=== PATIENT | female | born 1945 | race Caucasian/White ===

== ENCOUNTER 2024-02-04 10:59 | Outpatient (CLI) | payer MEDICARE, SELFPAY | END 2024-02-04 11:00 | disposition home or self-care (01) | LOC: KYNREF 11:01 | PROVIDERS: PCP Family Medicine; Visit Provider Nurse Practitioner Family | DX: N39.0 Urinary tract infection, site not specified (principal); B96.20 Unspecified Escherichia coli [E. coli] as the cause of diseases classified elsewhere | CPT/HCPCS: 81001; 87086; 87186 ==

== ENCOUNTER 2024-02-17 10:48 | Outpatient (CLI) | payer MEDICARE, SELFPAY ==
--- OUTSIDE RECORDS SUMMARY | 2024-02-20 18:49 | XMS_ITS | Clinical Summary ---
Author Organization [facility] er Address [address] [place] [address] Care Team Providers Care Classifying Machine Operator Name Role Phone Unavailable Primary Care Provider Unavailabl e Allergies No known active allergies Medications Medication Sig Dispensed Refills Start Date End Date Status celecoxib (CeleBREX) 200 MG capsule Take 1 capsule (200 mg total) by mouth 1 (one) time each day Take with food. Takes as needed Active estradiol (ESTRACE) 0.1 MG/GM vaginal cream Insert 2 g into the vagina 2 (two) times a week Insert once gram vaginally twice weekly at bedtime Active hydroxychloroquine (PLAQUENIL) 200 MG tablet Take 1 tablet (200 mg total) by mouth 2 (two) times a day Take 1 tablet by mouth twice daily with meals Active pilocarpine (SALAGEN) 5 MG tablet Take 1 tablet (5 mg total) by mouth 3 (three) times a day Take 1 tablet 3 times a day by oral route Active cycloSPORINE (RESTASIS) 0.05 % ophthalmic emulsion Administer 1 drop into both eyes 2 (two) times a day Instill 1 drop into each eye twice daily for the treatment of dry eyes Active carboxymethylcellulo se sod pf 1 % gel 2 drops 2 (two) times a day Active Polyethylene Glycol 400 (Blink Tears) 0.25 % gel Apply 1 drop to affected eye(s) 2 (two) times a day Active escitalopram (LEXAPRO) 10 MG tablet Take 1 tablet (10 mg total) by mouth 1 (one) time each day Active acetaminophen (TYLENOL 8 HOUR) 650 MG 8 hr tablet Take 1 tablet (650 mg total) by mouth every 8 (eight) hours if needed for mild pain Do not crush, chew, or split. Active Biotin 56325 MCG tablet Take 1 tablet by mouth daily Active Calcium Carb-Cholecalciferol (CALCIUM 500 + D PO) Take 1 tablet by mouth 2 (two) times a day Active Glucosamine-Chondroi tin 750-600 MG chewable tablet Chew 1 tablet 2 (two) times a day Active ascorbic acid (VITAMIN C) 500 MG tablet Take 1 tablet (500 mg total) by mouth 1 (one) time each day Active Cholecalciferol (Vitamin D3) 50 MCG (2000 UT) tablet Take 1 tablet by mouth 1 (one) time each day Active Immunizations Name Administration Dates Next Due Covid-19 Vaccine, Unspecifie d Formulation 03/08/2021,08/21/2020,07/26/2020 Flu Vaccine High Dose 65yrs and Older IM 04/13/2023 H1N1 All Forms 06/07/2009 Influenza, Split Virus, Triv alent, Preservative 03/30/2013,03/24/2012,03/12/2010,03/07,04/05/2008,04/08/2007,04/13/2006 ,04/13/2005 Influenza, Trivalent, PF 04/09/2016,03/24,04/13/2014,04/03 Pneumococcal Conjugate 13-Valent 08/27/2017,01/2017 Pneumococcal Polysaccharide 05/24/2015, 2 TD Preservative Free 05/07/2006 Tdap 04/10/2015 Zoster 05/14/2008 Zoster Recombinant 07/22/2022,05/25/2022 Social History Tobacco Use Types Packs/Day Years Used Date Smoking Tobacco: Never Assessed Passive Smoke Exposure: Past Smokeless Tobacco: Never Tobacco Cessation:Counseling Given: No Alcohol Use Standard Drinks/Week Comments Yes 1 (1 standard drink = 0.6 oz pur e alcohol) Sex and Gender Information Value Date Recorded Sex Assigned at Not on file Gender Identity Not on file Sexual Orientation Not on file Last Filed Vital Signs Vital Sign Reading Time Taken Comments Blood Pressure 136/82 10/21/2023 1:40 PM CDT Pulse 74 10/21/2023 1:40 PM CDT Temperature 36.6 ??C (97.9 ??F) 10/21/2023 1:40 PM CD T Respiratory Rate 16 10/21/2023 1:40 PM CDT Oxygen Saturation - - Inhaled Oxygen Concentration - - Weight 62.1 kg (136 lb 12.8 oz) 10/21/2023 1:40 PM CDT Height 157.5 cm (5' 2) 10/21/2023 1:40 PM CDT Body Mass Index 25.02 10/21/2023 1:40 PM CDT Plan of Treatment Upcoming Encounters Date Type Department Care Team (Late st Contact Info) Description 04/19/2024 10:40 AM SALES AND SERVICE TECHNICIAN Office Visit [facility] Rheumatology [address] [place] [address] Rosalinda Levin MD [address] [place] [address] Health Maintenance Due Date Last Done Comments Mammogram 1945 Fall Risk Performed 10/27/1963 Medicare Annual Wellness Visit (AWV) 10/27/1963 COVID-19 Vaccine ( season) 2024 04/13/2023, 03/08/2021, 08/21/2020, Additional history exists DTaP,Tdap,and Td Vaccines (2 - Td or Tdap) 04/10/2025 04/10/2015, 05/07/2006, 05/07/2006 Bone Density Scan 06/16/2027 06/16/2022, 06/07/2013 Pneumococcal Vaccine: 65+ Years Completed 08/27/2017, 06/01/2016, 05/24/2015, Additional history exists Colonoscopy Discontinued 02/03/2018 Colorectal Cancer Screening Discontinued Zoster Vaccines Completed 07/22/2022, 06/2022, 05/24/2014, Additional history exists Influenza Vaccine Completed 02/03/2024, , 03/16/2022, Additional history exists CT Colonography Discontinued FIT-DNA Discontinued HPV Vaccines Aged Out No longer eligi ble based on patient's age to complete this topic Sigmoidoscopy Discontinued iFOBT Discontinued
== END 2024-02-17 10:49 | disposition home or self-care (01) ==
LOC: NFLDREF 02-20 18:47
PROVIDERS: PCP Family Medicine; Referring Provider Family Medicine; Visit Provider Family Medicine
DX: N39.0 Urinary tract infection, site not specified (principal); B96.20 Unspecified Escherichia coli [E. coli] as the cause of diseases classified elsewhere
CPT/HCPCS: 87086; 87186

== ENCOUNTER 2024-02-21 13:50 | Outpatient (CLI) | payer MEDICARE, SELFPAY ==
--- OUTSIDE RECORDS SUMMARY | 2024-02-23 13:21 | XMS_ITS | Clinical Summary ---
Author Organization [facility] er Address [address] [place] [address] Care Team Providers Care Rehabilitation Aide/Scheduler Name Role Phone Unavailable Primary Care Provider [...] not crush, chew, or split. Active Biotin 88549 MCG tablet Take 1 tablet by mouth [...] st Contact Info) Description 04/19/2024 10:40 AM ELECTRICAL ENGINEER Office Visit [facility] Rheumatology [address] [place] [address] Rosalinda Levin MD [address] [place] [address] Health Maintenance Due Date Last [...]
== END 2024-02-21 13:51 | disposition home or self-care (01) ==
LOC: NFLDREF 02-23 13:19
PROVIDERS: PCP Family Medicine; Referring Provider Family Medicine; Visit Provider Family Medicine
DX: N39.0 Urinary tract infection, site not specified (principal); B96.20 Unspecified Escherichia coli [E. coli] as the cause of diseases classified elsewhere
CPT/HCPCS: 87086; 87186

== ENCOUNTER 2024-03-17 08:51 | Outpatient (CLI) | payer MEDICARE, SELFPAY ==
--- OUTSIDE RECORDS SUMMARY | 2024-03-17 14:49 | XMS_ITS | Clinical Summary ---
Author Organization [facility] er Address [address] [place] [address] Care Team Providers Care Marking Devices Assembler Name Role Phone Unavailable Primary Care Provider [...] not crush, chew, or split. Active Biotin 61137 MCG tablet Take 1 tablet by mouth [...] 10/21/2023 1:40 PM CDT Plan of Treatment Health Maintenance Due Date Last Done Comments [...]
== END 2024-03-17 08:52 | disposition home or self-care (01) ==
LOC: NFLDREF 14:48
PROVIDERS: PCP Family Medicine; Referring Provider Family Medicine; Visit Provider Family Medicine
DX: R39.9 Unspecified symptoms and signs involving the genitourinary system (principal); Z23 Encounter for immunization
CPT/HCPCS: 87086

== ENCOUNTER 2024-03-27 10:22 | Outpatient (CLI) | payer MEDICARE, SELFPAY ==
--- OUTSIDE RECORDS SUMMARY | 2024-03-27 10:26 | XMS_ITS | Clinical Summary ---
Author Organization [facility] er Address [address] [place] [address] Care Team Providers Care Communications Supervisor Name Role Phone Unavailable Primary Care Provider [...] not crush, chew, or split. Active Biotin 56916 MCG tablet Take 1 tablet by mouth [...] 10/27/1963 Medicare Annual Wellness Visit (AWV) 10/27/1963 DTaP,Tdap,and Td Vaccines (2 - Td or Tdap) 04/10/2025 04/10/2015, 05/07/2006, 05/07/2006 Bone Density Scan 06/16/2027 06/16/2022, 06/07/2013 Pneumococcal Vaccine: 65+ Years Completed 08/27/2017, 06/01/2016, 05/24/2015, Additional history exists Colonoscopy Discontinued 02/03/2018 Colorectal Cancer Screening Discontinued Zoster Vaccines Completed 07/22/2022, 06/2022, 05/24/2014, Additional history exists Influenza Vaccine Completed 02/03/2024, , 03/16/2022, Additional history exists COVID-19 Vaccine Completed 03/17/2024, , 03/08/2021, Additional history exists CT Colonography Discontinued FIT-DNA Discontinued HPV Vaccines Aged Out No longer eligi ble based on patient's age to complete this topic Sigmoidoscopy Discontinued iFOBT Discontinued
--- NOTE | 2024-03-27 10:45 | CRLHL7_ITS ---
For Patients: As a result of the Century Cures Act, medical imaging exams and procedure reports are released immediately into your electronic medical record. You may view this report before your referring provider. If you have questions, please contact your health care provider. DIGITAL SCREENING BILATERAL MAMMOGRAM USING TOMOSYNTHESIS AND COMPUTER-AIDED DETECTION INDICATION: 78-year-old asymptomatic female. No personal history of breast cancer and biopsies. TECHNIQUE: CC and MLO views were obtained. This digital study was evaluated with the assistance of computer-aided detection. Digital breast tomosynthesis utilized in interpretation. COMPARISON: None. Prior mammograms were performed somewhere in [place] not otherwise specified. FINDINGS: There are areas of scattered fibroglandular density. Scattered benign-appearing calcifications both vascular and secretory. Neither nipple is in profile on the CC views. The pectoralis muscles are not optimally visualized on the MLO views. While there is no convincing evidence for breast masses, suspicious microcalcifications, or areas of architectural distortion, consider follow-up/repeat of the CC views with the nipples in profile and possible nipple markers present, as well as repeat MLO views to include more of the pectoralis musculature. BI-RADS Category 0: Incomplete: Need Additional Imaging Evaluation [facility] will contact the patient for follow-up. A lay language report of this examination will be provided to the patient. Dictated by: Hermes Jhaveri MD @03/29/2024 10:53:49 AM /Dictated by: Hermes Jhaveri MD @ 03/29/2024 10:54:00 AM (Electronically Signed)
== END 2024-03-27 10:23 | disposition home or self-care (01) ==
LOC: MAMMO 10:23
PROVIDERS: PCP Family Medicine; Visit Provider Family Medicine
DX: Z12.31 Encounter for screening mammogram for malignant neoplasm of breast (principal); R92.1 Mammographic calcification found on diagnostic imaging of breast
CPT/HCPCS: 77063; 77067

== ENCOUNTER 2024-04-05 13:02 | Outpatient (CLI) | payer MEDICARE, SELFPAY ==
--- OUTSIDE RECORDS SUMMARY | 2024-04-05 13:05 | XMS_ITS | Clinical Summary ---
Author Organization [facility] er Address [address] [place] [address] Care Team Providers Care Software Integrator Name Role Phone Unavailable Primary Care Provider [...] not crush, chew, or split. Active Biotin 55598 MCG tablet Take 1 tablet by mouth [...] Care Team (Late st Contact Info) Description 04/27/2024 10:40 AM PHLEBOTOMY SUPERVISOR Office Visit [facility] Rheumatology [address] [place] [address] Rosalinda Levin MD [address] [place] [address] Health Maintenance Due Date Last [...]
== END 2024-04-05 13:03 | disposition home or self-care (01) ==
LOC: NFLDREF 13:03
PROVIDERS: PCP Family Medicine; Visit Provider Family Medicine
DX: R35.0 Frequency of micturition (principal); N39.0 Urinary tract infection, site not specified
CPT/HCPCS: 87086; 87186

== ENCOUNTER 2024-06-08 11:25 | Outpatient (CLI) | payer MEDICARE, SELFPAY | END 2024-06-08 11:26 | disposition home or self-care (01) | LOC: NFLDREF 06-21 13:33 | PROVIDERS: PCP Family Medicine; Referring Provider Family Medicine; Visit Provider Nurse Practitioner Family | DX: N39.0 Urinary tract infection, site not specified (principal) | CPT/HCPCS: 81001; 87086; 87186 ==

== ENCOUNTER 2024-06-26 08:53 | Outpatient (CLI) | payer MEDICARE, SELFPAY | END 2024-06-26 08:54 | disposition home or self-care (01) | LOC: NFLDREF 06-28 01:51 | PROVIDERS: PCP Family Medicine; Referring Provider Family Medicine; Visit Provider Nurse Practitioner Family | DX: R35.0 Frequency of micturition (principal); N39.0 Urinary tract infection, site not specified; N95.2 Postmenopausal atrophic vaginitis | CPT/HCPCS: 87086 ==

== ENCOUNTER 2024-10-25 09:19 | Outpatient (CLI) | payer MEDICARE, SELFPAY | END 2024-10-25 09:20 | disposition home or self-care (01) | PROVIDERS: PCP Family Medicine; Visit Provider Family Medicine | DX: L65.9 Nonscarring hair loss, unspecified (principal); Z13.6 Encounter for screening for cardiovascular disorders | CPT/HCPCS: 80048; 80061 ==

== ENCOUNTER 2025-01-09 09:00 | Outpatient (CLI) | payer MEDICARE, SELFPAY | END 2025-01-09 09:01 | disposition home or self-care (01) | LOC: NFLDREF 01-14 04:21 | PROVIDERS: PCP Family Medicine; Referring Provider Family Medicine; Visit Provider Family Medicine | DX: R30.0 Dysuria (principal); N39.0 Urinary tract infection, site not specified | CPT/HCPCS: 87086 ==

== ENCOUNTER 2025-04-06 14:44 | Outpatient (CLI) | payer MEDICARE, SELFPAY ==
--- NOTE | 2025-04-06 15:00 | CRLHL7_ITS ---
For Patients: As a result of the Century Cures Act, medical imaging exams and procedure reports are released immediately into your electronic medical record. You may view this report before your referring provider. If you have questions, please contact your health care provider. INDICATION: BILATERAL SCREENING MAMMOGRAM, ASYMPTOMATIC 79 Y/O FEMALE COMPARISON: 03/27/2024 TECHNIQUE: Digital mammogram in CC and MLO projections including computer-aided detection (CAD) and tomosynthesis. BREAST COMPOSITION: The breasts are heterogeneously dense, which may obscure small masses. FINDINGS: No suspicious findings. ASSESSMENT: BI-RADS 2 Benign RECOMMENDATION: Annual screening mammogram. A lay language report of this examination will be provided to the patient. Dictated by: Alberto Flores MD @ 04/09/2025 09:22:34 (Electronically Signed)
== END 2025-04-06 14:45 | disposition home or self-care (01) ==
LOC: MAMMO 14:44
PROVIDERS: PCP Family Medicine; Visit Provider Family Medicine
DX: Z12.31 Encounter for screening mammogram for malignant neoplasm of breast (principal); R92.333 Mammographic heterogeneous density, bilateral breasts
CPT/HCPCS: 77063; 77067